=== PATIENT | female | born 1990 | race Caucasian/White ===

== ENCOUNTER 2021-05-17 12:26 | Emergency (ER) | payer OTHER, SELFPAY ==
--- NOTE | 2021-05-17 12:38 | ED.WOUNDLAC ---
HPI - Wound/Laceration General Chief Complaint: Wound/Laceration Stated Complaint: Punture wound on right foot Time Seen by Provider: 05/17/21 12:40 Source: patient and RN notes reviewed Mode of arrival: ambulatory Limitations: no limitations History of Present Illness HPI narrative: 31-year-old female presents to the [facility] with complaints of a puncture wound to the dorsal lateral right foot. States that she was camping yesterday when she stepped on some barbed wire which caused a puncture wound in the lateral dorsal aspect of the right foot. Center is scabbed over with a 2 x 2 centimeter red raised area. Believes that she needs a tetanus update. Last one was 7 to 8 years ago. Reports that the daren wire was suzie. Area was cleaned when she got home last night. Related Data Allergies Allergy/AdvReac Type Severity Reaction Status Date / Time amoxicillin Allergy Unknown Unknown Verified 05/17/21 12:49 Review of Systems Review of Systems: All systems reviewed & are unremarkable except as noted in HPI and below Constitutional: Constitutional: Reports no additional constitutional complaints, Denies chills, Denies fever(s) and Denies weakness Eyes: Eyes: Reports no additional eye complaints Cardiovascular: Cardiovascular: Reports no additional cardiovascular complaints and Denies chest pain Respiratory: Respiratory: Reports no additional respiratory complaints, Denies cough and Denies dyspnea Musculoskeletal: Musculoskeletal: Reports no additional musculoskeletal complaints, Denies myalgias, Denies joint swelling and Denies muscle cramps Integumentary/Breasts: Skin/Breast: Reports as per HPI, Reports erythema and Denies rash Neurologic: Reports system reviewed and no additional complaints, except as documented Psychiatric: Psychiatric: Reports no additional psychiatric complaints Allergic/Immunologic: Allergic/Immunologic: Reports no additional allergic/immunologic complaints PMFSH Comments At the time of my signature, I reviewed and agree with the nursing past medical, surgical, social, and family history. There is no relevant family history pertinent to the patient complaint. Exam Const: General: healthy appearing, no acute distress and alert Nutritional Appearance: well nourished Orientation/consciousness: patient oriented x3 Limitations: no limitations HENMT: Head: normal to inspection Neck: Neck: normal visual inspection, no lymphadenopathy and no meningeal signs Chest: Chest palpation & inspection: normal inspection of the chest Resp: Effort & Inspection: normal respiratory effort and no use of accessory muscles Auscultation: clear to auscultation bilaterally, no crackles, no rales, no rhonchi and no wheezes Cardio: Rate: regular rate Rhythm: regular rhythm Back/Spine/Pelvis: Back: no CVA tenderness Skin: General skin exam: normal color Other: Right dorsal aspect lateral foot, 2 x 2 redness with a center puncture wound. Area of puncture is scabbed over. No foreign bodies palpated. Positive pedal pulses. Capillary refill under 2 seconds. Neuro: General: patient oriented x3, moves all extremities, no meningeal signs and no focal motor deficits Speech: normal speech Gait exam (Neuro): Normal gait present Extrem: General: normal to inspection and no pedal edema Psych: Appearance: grossly normal and well kempt Mental Status: mental status grossly normal Affect: normal affect Attitude: cooperative Thought content: Yes Normal thought content present Course Course Emergency Course: Discharge instructions reviewed with patient, as well as provided in writing per nursing staff. The instructions also include specific and strict return/GO TO THE ER as well as f/u information. All questions have been answered, and the patient deny any further questions with discharge and discharge plan. Vital Signs Vital signs: Vital Signs Temperature 98.5 F 05/17/21 12:39 Pulse Rate 87 05/17/21 12:39 Res
[2021-05-17 12:39] VITALS: BP 119/91; PULSE 87; RESP 16; TEMP 36.9; O2SAT 99
[2021-05-17] MEDS: TETANUS,DIPHTHERIA,AC PERTUSSIS ADULT (0.5 ML) BOOSTRIX IM (12:44)
== END 2021-05-17 13:20 | disposition home or self-care (01) ==
PROVIDERS: Emergency Provider Nurse Practitioner
DX: S91.331A Puncture wound without foreign body, right foot, initial encounter (principal); W22.8XXA Striking against or struck by other objects, initial encounter; Z23 Encounter for immunization
CPT/HCPCS: 87070; 87075; 87077; 87205; 90471; 90715; 99213; G0463

== ENCOUNTER 2022-06-13 14:18 | Emergency (ER) | payer OTHER, SELFPAY ==
[2022-06-13 14:26] VITALS: BP 113/75; PULSE 74; RESP 16; TEMP 37.1; O2SAT 100
--- NOTE | 2022-06-13 15:13 | ED.SKABFB ---
HPI - Skin/Abscess/Foreign Bdy General Chief complaint: Skin/Abscess/Foreign Body Stated complaint: Rash on Face Time Seen by Provider: 06/13/22 15:13 Source: patient Mode of arrival: ambulatory Limitations: no limitations History of Present Illness HPI narrative: 32 y/o female presented for c/o rash to right eyebrow for 4 days. Started as a red bump in the eyebrow then increased in size traveling up the forehead with blisters and pain. States pain is minimal at this time but rates 6/10 last night, only on the right side of face. Denies itching or drainage. Took ibuprofen for pain. Denies vision changes, headaches, dizziness, n/v/d/f/c. complaint: rash Related Data Allergies Allergy/AdvReac Type Severity Reaction Status Date / Time amoxicillin Allergy Unknown Unknown Verified 06/13/22 14:34 Review of Systems Review of Systems: CONSTITUTIONAL: Denies body aches, fever, chills, or sweats. EYES: Denies visual changes, redness, or discharge. ENT: Denies rhinorrhea, congestion, sore throat, or otalgia. CARDIOVASCULAR: Denies chest pain, palpitations, or edema. RESPIRATORY: Denies cough or dyspnea. SKIN: reports rash NEUROLOGIC: Denies headache, numbness, tingling, or weakness. PMFSH Comments At time of signature, I have reviewed and agree with nursing past medical, surgical, social and family history unless otherwise noted. Please see nursing chart for further information. There is no relevant family history pertinent to the presenting complaint Exam Narrative: GENERAL: Well-appearing EYES: PERRLA, conjunctivae clear, and EOMI. ENT: Mucous membranes moist. Oropharynx without edema, erythema or lesions. CHEST: Clear to auscultation. No respiratory distress. HEART: Regular rate and rhythm. SKIN: Warm, dry. Red raised vesicles to right eyebrow patch to right upper forehead, c/w zoster; does not cross to left no active drainage NEURO: Alert and oriented x3. Course Course Emergency Course: Patient is aware of diagnosis, understands and agrees to treatment plan. Anticipatory guidance given. Patient agrees to follow-up as directed and is aware of reasons to seek care at the emergency department. Portions of this record may have been created with voice recognition software Level of Care: Express Care Visit Vital Signs Vital signs: Vital Signs Temperature 98.8 F 06/13/22 14:26 Pulse Rate 74 06/13/22 14:26 Respiratory Rate 16 06/13/22 14:26 Blood Pressure 113/75 06/13/22 14:26 Pulse Oximetry 100 06/13/22 14:26 Oxygen Delivery Room Air 06/13/22 14:26 Temperature 98.8 F 06/13/22 14:26 Pulse Rate 74 06/13/22 14:26 Respiratory Rate 16 06/13/22 14:26 Blood Pressure 113/75 06/13/22 14:26 Pulse Oximetry 100 06/13/22 14:26 Oxygen Delivery Room Air 06/13/22 14:26 Reviewed MDM - Skin/Abscess/Foreign Bdy MDM Narrative Medical decision making narrative: PE and symptoms c/w herpes zoster, advised at 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 Patient is in stable condition and appropriate for outpatient treatment and follow-up Differential Diagnosis Differential diagnosis: Likely abscess of skin or subcutaneous tissue, urticaria, herpes zoster, cellulitis and contact dermatitis Discharge Plan Discharge Clinical Impression: Herpes zoster Qualifiers: Herpes zoster complications: without complications Qualified Code(s): B02.9 - Zoster without complications Patient Disposition: Home, Self-Care Condition: Stable Additional Instructions: Take medication as directed Keep the lesions covered until they are fully crusted over - you are contagious until they are dried Avoid contact with women or people who have not had chickenpox vaccination. Tylenol 1000mg every 8 hours as needed, ibuprofen 600mg every 8 hours for pain Follow up with your primary care provider an
== END 2022-06-13 15:30 | disposition home or self-care (01) ==
PROVIDERS: Emergency Provider Nurse Practitioner Family; PCP Internal Medicine
DX: B02.9 Zoster without complications (principal)
CPT/HCPCS: 99213; G0463